=== PATIENT | female | born 1950 | race Caucasian/White ===

== ENCOUNTER → 2018-01-10 11:23 | Outpatient (CLI) | payer MEDICARE, OTHER | END | disposition home or self-care (01) | LOC: D.LAB 11:23 | PROVIDERS: Internal Medicine Gastroenterology | DX: R19.7 Diarrhea, unspecified (principal); Z87.19 Personal history of other diseases of the digestive system ==

== ENCOUNTER 2018-01-30 10:41 | Day surgery (SDC) | payer MEDICARE, OTHER ==
[~2018-01-30] VITALS: Ht 160 cm; Wt 92.3 kg
--- NOTE | ~2018-01-30 | OP ---
PATIENT NAME: ESTEBAN DEL ANGEL MEDICAL RECORD: [id number] :51 LOCATION:[facility] ADMISSION DATE: SURGEON: NEVA LOYA MD DATE OF OPERATION: 01/30/2018 PROCEDURE: EGD with fecal transplant. INDICATIONS: Ms. Del Angel is a delightful 67-year-old woman with a history of COPD, who has had recurrent persistent Clostridium difficile colitis despite multiple rounds of Flagyl and vancomycin. She presents for outpatient fecal transplantation to treat this Clostridium difficile colitis. PREMEDICATIONS: Total IV anesthesia (COPD, ASA 3) propofol 150 mg. INSTRUMENT: Olympus video colonoscope pediatric. PROCEDURE AND FINDINGS: After receiving informed consent, Ms. Del Angel posterior pharynx was anesthetized with Cetacaine spray, placed in left lateral decubitus position and sedated as per anesthesia. After achieving an adequate level of sedation, the colonoscope was introduced per orally and advanced into the proximal jejunum (120 cm) without difficulty. The fecal transplant was deployed through the colonoscope and into the lumen of the proximal jejunum. Three lavages with water followed with sterile water followed the transplant, colonoscope was withdrawn. Of note, she had a small hiatal hernia, no other findings were noted on this exam. Ms. Del Angel tolerated the procedure well, no immediate complications. ASSESSMENT: 1. Fecal transplantation into proximal jejunum. 2. Small hiatal hernia. 3. History of recurrent persistent Clostridium difficile colitis post-treatment with Flagyl and oral vancomycin. RECOMMENDATIONS: Continue probiotics for at least a year. TRANSINT:[id number] Voice Confirmation ID: [id number] DOCUMENT ID: [id number] NEVA LOYA MD at 1927 CC: [id number] DICTATION DATE: 01/30/18 1352 LUMBER PILER OPERATOR: 01/30/18 1409 [facility] 01/30/18 [place] [id number]
[2018-01-30] MEDS ORDERED: SYMBICORT 16010.2 GM INH (11:26)
[2018-01-30] MEDS ORDERED: OMEPRAZOLE40 MG PO (11:26)
[2018-01-30] MEDS ORDERED: ZANAFLEX4 MG PO (11:26)
[2018-01-30] MEDS ORDERED: SYNTHROID88 MCG PO (11:27)
[2018-01-30] MEDS ORDERED: NEURONTIN 300300 MG PO (11:27)
[2018-01-30] MEDS ORDERED: TRILEPTAL300 MG PO (11:28)
[2018-01-30] MEDS ORDERED: TRAZODONE HCL50 MG PO (11:28)
[2018-01-30] MEDS ORDERED: INDERAL10 MG PO (11:28)
[2018-01-30] MEDS ORDERED: BUSPAR 15 MG TA15 MG PO (11:29)
[2018-01-30] MEDS ORDERED: ULTRAM50 MG PO (11:29)
[2018-01-30] MEDS ORDERED: CYMBALTA30 MG PO (11:29)
[2018-01-30 11:36] VITALS: BP 135/74; Ht 160 cm; Wt 92.3 kg
[2018-01-30 12:05] LABS: BASOPHILS 0.2 % (0-2); EOSINOPHILS 1.7 % (0-7); HEMATOCRIT 40.1 % (36.0-48.0); HEMOGLOBIN 13.5 g/dL (12-16); IMMATURE GRANULOCYTES 0.3 % (0-5); LYMPHOCYTES 26.3 % (15-50); MCH 31.9 pg (26.0-34.0); MCHC 33.7 g/dL (31.0-37.0); MCV 94.8 fL (80.0-100.0); MEAN PLATELET VOLUME 10.8 fL (7.4-10.4); MONOCYTES 9.2 % (2-11); NEUTROPHILS 62.3 % (40-80); PLATELET COUNT 245 10x3/uL (130-400); RBC 4.23 10x6/uL (4.00-5.40); RDW 13.7 % (11.5-14.5); WBC 6.5 10x3/uL (4.8-10.8)
[2018-01-30 12:15] LABS: CALC OSMOLALITY 277 mosm/kg (275-300); CALCIUM 9.5 mg/dL (8.5-10.1); CARBON DIOXIDE 25.8 mmol/L (21.0-32.0); CHLORIDE - SERUM 104 mmol/L (98-107); CREATININE - SERUM 0.5 mg/dL (0.6-1.3); GLUCOSE 98 mg/dL (74-106); POTASSIUM - SERUM 5.7 mmol/L (3.5-5.1); SODIUM 140 mmol/L (136-145); UREA NITROGEN 11 mg/dL (7-18); eGFR NON AFRICAN AMERICAN > 90 mL/min (90-120)
== END 2018-01-30 14:55 | disposition home or self-care (01) ==
LOC: D.OPS 10:41
PROVIDERS: Anesthesiology
DX: A04.71 Enterocolitis due to Clostridium difficile, recurrent (principal); F17.200 Nicotine dependence, unspecified, uncomplicated; I10 Essential (primary) hypertension; E03.9 Hypothyroidism, unspecified; J44.9 Chronic obstructive pulmonary disease, unspecified; G47.30 Sleep apnea, unspecified; Z01.812 Encounter for preprocedural laboratory examination

== ENCOUNTER 2018-07-27 20:41 | Emergency (ER) | payer MEDICARE, OTHER ==
[~2018-07-27] VITALS: Ht 160 cm; Wt 83.6 kg
[~2018-07-27 20:41] MED LIST: BUSPAR 15 MG TA15 MG PO; CYMBALTA30 MG PO; INDERAL10 MG PO; NEURONTIN 300300 MG PO; OMEPRAZOLE40 MG PO; SYMBICORT 16010.2 GM INH; SYNTHROID88 MCG PO; TRAZODONE HCL50 MG PO; TRILEPTAL300 MG PO; ULTRAM50 MG PO; ZANAFLEX4 MG PO
[2018-07-27 20:45] VITALS: Ht 160 cm; Wt 83.6 kg
[2018-07-27] MEDS ORDERED: VOLTAREN75 MG PO (22:30)
[2018-07-27] MEDS ORDERED: VIBRAMYCIN 100100 MG PO (22:30)
[2018-07-27 22:44] VITALS: BP 170/85
== END 2018-07-27 22:45 | disposition home or self-care (01) ==
LOC: D.ER 20:41
DX: L03.115 Cellulitis of right lower limb (principal); J44.9 Chronic obstructive pulmonary disease, unspecified

== ENCOUNTER → 2018-08-25 09:24 | Outpatient (CLI) | payer MEDICARE, OTHER ==
[2018-07-27 20:45] VITALS: BMI 32.6
[~2018-08-25 09:24] MED LIST changes: +VIBRAMYCIN 100100 MG PO; +VOLTAREN75 MG PO
[2018-08-25 11:12] LABS: ALBUMIN 3.3 g/dL (3.4-5.0); BILIRUBIN - DIRECT 0.12 mg/dL (0.00-0.30); BILIRUBIN - INDIRECT 0.19 mg/dL (0.00-1.00); BILIRUBIN - TOTAL 0.31 mg/dL (0.2-1.3); PROTEIN - SERUM 6.7 g/dL (6.4-8.2)
== END | disposition home or self-care (01) ==
LOC: D.MRI 09:24
PROVIDERS: Internal Medicine Gastroenterology
DX: R10.11 Right upper quadrant pain (principal)

== ENCOUNTER → 2018-09-03 08:26 | Outpatient (CLI) | payer MEDICARE, OTHER ==
[2018-07-27 20:45] VITALS: BMI 32.6
== END | disposition home or self-care (01) ==
LOC: D.NM 08:26
DX: R93.89 Abnormal findings on diagnostic imaging of other specified body structures (principal); K83.8 Other specified diseases of biliary tract

== ENCOUNTER 2019-02-19 09:40 | Day surgery (SDC) | payer MEDICARE, OTHER ==
[2019-02-18 15:09] LABS: HEMATOCRIT 37.6 % (36.0-48.0); HEMOGLOBIN 12.8 g/dL (12-16); MCH 31.9 pg (26.0-34.0); MCV 93.8 fL (80.0-100.0); MEAN PLATELET VOLUME 8.8 fL (7.4-10.4); RBC 4.01 10x6/uL (4.00-5.40); RDW 12.9 % (11.5-14.5); WBC 8.1 10x3/uL (4.8-10.8)
[~2019-02-19] VITALS: Ht 160 cm; Wt 83.5 kg
--- NOTE | ~2019-02-19 | OP ---
PATIENT NAME: ESTEBAN DEL ANGEL MEDICAL RECORD: [id number] :51 [facility] DATE: SURGEON: JERAMY WOLFF DATE OF OPERATION: 02/19/2019 SURGEON: Jeramy Wolff DPM PREOPERATIVE DIAGNOSIS: Hallux abductovalgus, right foot. POSTOPERATIVE DIAGNOSIS: Hallux abductovalgus, right foot. PROCEDURE: Nathaniel bunionectomy, right foot. ANESTHESIA: Local with monitored anesthesia care. HEMOSTASIS: Pneumatic ankle tourniquet inflated to 250 mmHg. ESTIMATED BLOOD LOSS: Minimal. MATERIALS: One 2.5 x 20-mm headless Dart-Fire screw ([place]). INJECTABLES: 15 cc of 0.5% bupivacaine plain. The patient has a longstanding history of pain associated with the right foot bunion deformity. She has previously undergone surgical correction; however, she continued to have pain in the area. I have discussed with her the proposed procedure, risks and benefits were discussed. Complications were reviewed. She was appropriately consented for the above-mentioned procedure. DESCRIPTION OF PROCEDURE: The patient was brought in the operating room and placed on the operating table in the supine position. A timeout was called with Dr. Wolff, who identified the patient, the surgical site, and the surgery to be performed. Once appropriate anesthesia was obtained, the foot was prepped and draped in the usual aseptic manner. The pneumatic ankle tourniquet was inflated to 250 mmHg on the well-padded right ankle. Attention was directed to the dorsal aspect of the right foot, where a 6-cm linear incision was made just medial to the extensor hallucis longus tendon. This incision was carried deep to soft tissue with care being taken to retract all vital neurovascular structures. All bleeders were cauterized along the way. The first intermetatarsal space was then entered utilizing both sharp and blunt dissection. The conjoined tendon of the adductor hallucis muscle was identified at the base of the proximal phalanx and was sharply transected at this level. Attention was then directed further proximally to the level of the fibular sesamoidal ligament. This was also sharply transected. Attention was then directed to the dorsal aspect of the first metatarsophalangeal joint where the periosteum was reflected from the joint, thus revealing the head of the first metatarsal and the base of the proximal phalanx. Utilizing a sagittal saw, a V-shaped osteotomy was created in the head of the first metatarsal. This is a through and through osteotomy, the capital fragment was shifted laterally and impacted upon the first metatarsal shaft. Next, utilizing manufacture's recommended technique, one 2.5-mm screw was placed across the osteotomy. Excellent fixation was noted with placement of the screw. Any remaining OPERATIVE REPORT [id number] BEANBRENDA overhanging bone from the medial aspect of the first metatarsal was removed with the sagittal saw. The surgical site was then irrigated with copious amounts of normal sterile saline via bulb syringe. The periosteum was reapproximated and coapted using 3-0 Vicryl. The subQ was reapproximated and coapted using 3-0 Vicryl. The skin was reapproximated and coapted using 4-0 nylon. A dressing consisting of Xeroform, 4 x 4's, Kerlix, and Coban was applied to the right foot. The pneumatic ankle tourniquet was deflated and cap refill time is immediate to all digits of the right foot. The patient was discharged home with instructions to ice and elevate the foot. She has a boot from previous surgery that she is to use to assist with ambulation. She has my cell phone number for any afterhour difficulties. She was prescribed [place] 10/325, Phenergan 25 mg, and ibuprofen 800 mg and we will follow up with her in 1 week. No complications with this procedure. TRANSINT:[id number] Voice Confirmation ID: [id number] DOCUMENT ID: [id number] JERAMY WOLFF CC: [id number] DICTATION DATE: 02/19/19 145 [employer]URANCE AGENC[employer] SALES MANAGER: 02/19/19 1522 [facility] [address] [place] [id number]
[~2019-02-19 09:40] MED LIST changes: -INDERAL10 MG PO; +KLONOPIN0.5 MG PO; +PROPRANOLOL HCL20 MG PO
[2019-02-19 10:57] VITALS: BP 132/78; Ht 160 cm; Wt 83.5 kg
[2019-02-19] MEDS ORDERED: ALBUTEROL1.25 MG/3 INH (10:57)
--- NOTE | 2019-02-19 15:05 | NUR ---
REC'D FROM RR. FAMILY AT BEDSIDE. DRESSING CDI TO RIGHT FOOT, ELEVATED AND ICE APPLIED. BOOT APPLIED TO RIGHT FOOT AND ASSISTED TO BATHROOM. VOIDED WITHOUT DIFFICULTY. [place] TRAY BROUGHT TO PT.
--- NOTE | 2019-02-19 15:35 | NUR ---
TOLERATING DIET. DENIES NEEDS. LEFT TO RUN AN ERRAND.
--- NOTE | 2019-02-19 15:51 | NUR ---
BACK FROM RUNNING HIS ERRAND.
--- NOTE | 2019-02-19 16:05 | NUR ---
TOLERATED DIET. IV DC'D WITH CATHETER INTACT.
--- NOTE | 2019-02-19 16:15 | NUR ---
WRITTEN AND VERBAL DC INST. GIVEN TO PT. VERBALIZED UNDERSTANDING.
--- NOTE | 2019-02-19 16:20 | NUR ---
DC'D HOME WITH FAMILY VIA PRIVATE VEHICLE. TAKEN TO VEHICLE VIA WC. STABLE AT TIME OF DC.
== END 2019-02-19 16:20 | disposition home or self-care (01) ==
LOC: D.OPS 09:40 → D.PAN 12:00 → D.OPS 12:00
PROVIDERS: Anesthesiology; ATTEND Podiatrist
DX: M20.11 Hallux valgus (acquired), right foot (principal); Z01.812 Encounter for preprocedural laboratory examination

== ENCOUNTER 2021-04-17 07:02 | Day surgery (SDC) | payer MEDICARE, OTHER ==
[~2021-04-17] VITALS: Ht 160 cm; Wt 91.4 kg
[~2021-04-17 07:02] MED LIST changes: +ALBUTEROL1.25 MG/3 INH
[2021-04-17 07:34] LABS: BASOPHILS 0.6 % (0-2); EOSINOPHILS 3.1 % (0-7); HEMATOCRIT 40.3 % (36.0-48.0); HEMOGLOBIN 13.4 g/dL (12-16); LYMPHOCYTES 26.1 % (15-50); MCH 31.5 pg (26.0-34.0); MCHC 33.2 g/dL (31.0-37.0); MCV 94.7 fL (80.0-100.0); MEAN PLATELET VOLUME 7.1 fL (7.4-10.4); MONOCYTES 10.1 % (2-11); NEUTROPHILS 60.1 % (40-80); PLATELET COUNT 290 10x3/uL (130-400); RBC 4.26 10x6/uL (4.00-5.40); RDW 13.5 % (11.5-14.5); WBC 6.7 10x3/uL (4.8-10.8)
[2021-04-17 07:36] LABS: CALCIUM 9.3 mg/dL (8.5-10.1); CREATININE - SERUM 0.9 mg/dL (0.6-1.3)
[2021-04-17 08:31] VITALS: Ht 160 cm; Wt 91.4 kg
--- NOTE | 2021-04-17 08:40 | NUR ---
POSITIVE FOR SUICIDE SCREENING, LIFETIME. REFUSES FUTHER EVALUATION AT THIS TIME, AWARE THERE IS SOMEONE AVAILABLE TO SPEAK WITH IF PT CHANGES HER MIND
--- NOTE | 2021-04-17 11:30 | NUR ---
PIV REMOVED, CATHETER INTACT. DC TEACHING COMPLETE. ACKNOWLEDGED UNDERSTANDING. PT GETTING DRESSED. 1149 PT DC'D VIA WC ACCOMPANIED BY THIS NURSE TO POV WITH ALL BELONGINGS AND DC PACKET. DRIVING.
--- NOTE | 2021-04-19 06:46 | OP ---
PATIENT NAME: ESTEBAN DEL ANGEL MEDICAL RECORD: [id number] :51 LOCATION:[facility] ADMISSION DATE: SURGEON: SHAWNA GERONIMO DO DATE OF OPERATION: 04/17/2021 PROCEDURE: Colonoscopy with polypectomy and biopsies and stool collection. INDICATION FOR PROCEDURE: Change in bowel habits, history of colon polyps, history of diverticulosis. SCOPE: Olympus video pediatric colonoscope. MEDICATIONS: Propofol 600 mg IV per anesthesia. WITHDRAWAL TIME: 21 minutes. ESTIMATED BLOOD LOSS: Minimal. COMPLICATIONS: None. FINDINGS: Informed consent was given. The patient was made comfortable with the above medication. After reaching an adequate level of sedation by slow IV push, the patient was placed on her left side. A digital rectal exam was performed and was normal. The endoscope was advanced under direct visualization through the rectum to the cecum and terminal ileum. The endoscope was slowly withdrawn and the mucosa was carefully examined. The prep quality was good. The terminal ileum appeared normal. In the cecum, there was a single benign-appearing sessile polyp, which measured approximately 3 mm in diameter. It was removed using hot forceps. There was evidence of mild diverticulosis involving the sigmoid colon. Throughout the colon in a patchy distribution, there were areas of granularity and some congestion with a micronodular appearance. Random biopsies were taken of these sites with cold forceps. Appearances suggest lymphocytic colitis, but we will await pathology for diagnosis. There were scattered areas of completely normal mucosa with a normal vascular pattern and no evidence of colitis. The abnormal mucosa did stretch throughout the entire colon in a patchy distribution. Stool was collected during this procedure to submit for infectious studies. Retroflexion was performed of the rectum with visualization of a normal-appearing rectal wall. The endoscope was withdrawn from the patient. The patient tolerated the procedure well and there were no complications. IMPRESSION: 1. Single benign-appearing polyp located in the cecum, which was removed using hot forceps. 2. Patchy abnormal mucosa consisting of granularity, congestion, and micronodularity. Biopsies taken. 3. Mild diverticulosis of the sigmoid colon. 4. Stool studies taken to rule out infectious colitis. PLAN AND RECOMMENDATIONS: 1. Discharge home when recovery parameters are met. 2. Follow up biopsy specimen results. 3. High fiber diet. 4. Continue current medications. 5. Await biopsy results to determine recall, timeline and medications. If OPERATIVE REPORT [id number] VALLES lymphocytic colitis is present, this will be addressed as will any infectious etiology for the changes. 6. If all the above workup is normal, consider trial of dicyclomine for loose stools. 7. Anticipate recall in 5 years. TRANSINT:[id number] Voice Confirmation ID: [id number] DOCUMENT ID: [id number] SHAWNA GERONIMO DO at 0646 CC: [id number] DICTATION DATE: 04/17/21 1043 HIGHER EDUCATION ADMINISTRATOR: 04/19/21 0002 [facility] 04/17/21 [facility] [address] [place] [address]
== END 2021-04-17 11:49 | disposition home or self-care (01) ==
LOC: D.OPS 07:02
PROVIDERS: Anesthesiology; ATTEND Internal Medicine Gastroenterology
DX: Z86.010 Personal history of colon polyps (principal); R19.4 Change in bowel habit; K63.5 Polyp of colon; K57.30 Diverticulosis of large intestine without perforation or abscess without bleeding

== ENCOUNTER 2021-05-08 05:52 | Day surgery (SDC) | payer MEDICARE, OTHER ==
[~2021-05-08] VITALS: Ht 160 cm; Wt 90.5 kg
[2021-05-08 06:49] LABS: BASOPHILS 0.6 % (0-2); EOSINOPHILS 3.9 % (0-7); HEMATOCRIT 37.8 % (36.0-48.0); HEMOGLOBIN 12.5 g/dL (12-16); LYMPHOCYTES 40.1 % (15-50); MCH 30.9 pg (26.0-34.0); MCHC 33.1 g/dL (31.0-37.0); MCV 93.4 fL (80.0-100.0); MEAN PLATELET VOLUME 7.5 fL (7.4-10.4); MONOCYTES 9.1 % (2-11); NEUTROPHILS 46.3 % (40-80); PLATELET COUNT 259 10x3/uL (130-400); RBC 4.05 10x6/uL (4.00-5.40); RDW 13.1 % (11.5-14.5); WBC 6.1 10x3/uL (4.8-10.8)
[2021-05-08 07:07] VITALS: Ht 160 cm; Wt 90.5 kg
--- NOTE | 2021-05-08 08:49 | NUR ---
DR GERONIMO AT BEDSIDE F/U APPT ORDER FAXED TO OFFICE 09 DC TEACHING COMPLETED TO PT AND . ACKNOWLEDGED UNDERSTANDING. 909 PIV REMOVED, CATHETER INTACT. PT DRESSING 916 PT DC'D VIA WC ACCOMPANIED BY THIS NURSE TO POV WITH ALL BELONGINGS AND DC PACKET. DRIVING.
--- NOTE | 2021-05-09 06:38 | OP ---
PATIENT NAME: ESTEBAN DEL ANGEL MEDICAL RECORD: [id number] :51 LOCATION:[facility] ADMISSION DATE: SURGEON: SHAWNA GERONIMO DO DATE OF OPERATION: 05/08/2021 PROCEDURE: EGD with biopsies and balloon dilation. INDICATION FOR PROCEDURE: Dysphagia and regurgitation. SCOPE: Olympus video gastroscope. MEDICATIONS: Propofol 200 mg IV per anesthesia. ESTIMATED BLOOD LOSS: Minimal. COMPLICATIONS: None. FINDINGS: Informed consent was given. The patient was made comfortable with the above medication. After reaching an adequate level of sedation by slow IV push, the patient was placed on her left side. The endoscope was advanced under direct visualization through the mouth to the second portion of the duodenum. The esophagus appeared normal down to the GE junction. At the GE junction, there was esophageal stenosis. The site was dilated using a CRE balloon up to 19 mm maximum diameter, successfully. At the GE junction, there was also some LA class A reflux-induced esophagitis. Biopsies were taken from the middle esophagus before advancing into the stomach. The endoscope was retroflexed to view the cardia and fundus were a small sliding hiatal hernia was present. The fundus and body of the stomach appeared normal. In the antrum and prepyloric regions there were some changes of chronic gastritis consisting of erythema and granularity. Cold forceps biopsies were taken from the antrum and incisura to submit for histopathology and to rule out the presence of H. pylori. The endoscope was advanced beyond the pylorus into the duodenum, which appeared normal to the second portion. Cold forceps biopsies were randomly taken. The endoscope was withdrawn from the patient. The patient tolerated the procedure well and there were no complications. IMPRESSION: 1. Esophageal stenosis at the gastroesophageal junction, dilated to 19 mm maximum diameter. 2. LA class A reflux-induced esophagitis. 3. Small sliding hiatal hernia. 4. Mild chronic gastritis changes. PLAN AND RECOMMENDATIONS: 1. Discharge home when recovery parameters are met. 2. Follow up biopsy specimen results. 3. GERD diet and reflux precautions. 4. Continue current medications. 5. Omeprazole 40 mg daily times 60 days. 6. Follow up in GI clinic in 6 to 8 weeks. 7. Consider esophageal manometry and/or barium esophagram if continued symptoms of dysphagia. TRANSINT:[id number] Voice Confirmation ID: [id number] DOCUMENT ID: [id number] OPERATIVE REPORT [id number] ESTEBAN DEL ANGEL,SHAWNA Oreilly DO at 0638 CC: [id number] DICTATION DATE: 05/08/21 0834 NURSING AIDE: 05/08/21 1105 [facility] 05/08/21 [facility] [address] [place] [id number]
== END 2021-05-08 09:17 | disposition home or self-care (01) ==
LOC: D.OPS 05:52
PROVIDERS: Anesthesiology; ATTEND Internal Medicine Gastroenterology
DX: R13.10 Dysphagia, unspecified (principal); R11.10 Vomiting, unspecified; K22.2 Esophageal obstruction; K21.00 Gastro-esophageal reflux disease with esophagitis, without bleeding; K44.9 Diaphragmatic hernia without obstruction or gangrene; K29.50 Unspecified chronic gastritis without bleeding; J44.9 Chronic obstructive pulmonary disease, unspecified; I10 Essential (primary) hypertension; K57.30 Diverticulosis of large intestine without perforation or abscess without bleeding; Z86.010 Personal history of colon polyps; R19.4 Change in bowel habit